=== PATIENT | female | born 1975 | race American Indian/Alaskan Native ===

== ENCOUNTER 2017-08-05 14:27 | Emergency (ER) | payer BC ==
[2017-08-05 14:27] VITALS: BMI 43.2
[2017-08-05 14:37] VITALS: RESP 18; TEMP 98
[2017-08-05 15:11] LABS: BASO # 0.1 K/uL (0.0-0.2); BASO % 0.6 % (0.0-2.0); EOS # 0.2 K/uL (0.0-0.7); EOS % 2.5 % (0.0-4.0); HEMOGLOBIN 9.5 g/dL (11.0-16.0); LYMPH % 33.9 % (20.0-40.0); MEAN CELL VOLUME 66.4 fL (81.0-99.0); MEAN CORPUSCULAR HEMOGLOBIN 21.2 pg (27.0-31.0); MEAN CORPUSCULAR HGB CONC 31.9 g/dL (33.0-37.0); MONO # 0.5 K/uL (0.0-0.8); MONO % 5.6 % (0.0-10.0); NEUT # 5.1 K/uL (1.8-7.0); NEUT % 57.4 % (50.0-75.0); NRBC % 0.1 % (0.0-2.0); RBC 4.49 Mil/uL (3.80-5.20); RED CELL DISTRIBUTION WIDTH 19.1 % (11.5-14.5); WHITE BLOOD COUNT 8.9 K/uL (4.8-10.8)
[2017-08-05 15:16] LABS: HCG,QUALITATIVE URINE NEGATIVE (NEGATIVE)
[2017-08-05 15:20] LABS: SQUAMOUS EPITHIAL 7 /hpf (0-5); URINE BILIRUBIN NEGATIVE (NEGATIVE); URINE BLOOD 1+ (NEGATIVE); URINE CLARITY Clear (Clear); URINE COLOR Yellow (YELLOW); URINE GLUCOSE (UA) NORMAL (Normal); URINE LEUKOCYTE ESTERASE TRACE Leu/uL (Negative); URINE NITRATE NEGATIVE (NEGATIVE); URINE PROTEIN 1+ mg/dL (NEGATIVE); URINE UROBILINOGEN NORMAL mg/dL (0.2-1.0)
[2017-08-05 15:23] LABS: ALB/GLOB RATIO 1.1 (1.0-2.1); ALBUMIN 3.7 g/dL (3.5-5.0); ALT/SGPT 15 U/L (9-52); AST/SGOT 14 U/L (14-36); BLOOD UREA NITROGEN 11 mg/dL (7-17); CALCIUM 8.6 mg/dl (8.6-10.4); GFR AFRICAN-AMERICAN > 60; GFR NON-AFRICAN AMERICAN > 60; LIPASE 53 U/L (23-300)
[2017-08-05 15:24] LABS: INR 1.1; PARTIAL THROMBOPLASTIN TIME 29 SECONDS (21-34); PROTHROMBIN TIME 12.9 SECONDS (9.7-12.2)
[2017-08-05 15:34] LABS: B-TYPE NATRIURETIC PEPTIDE 72.4 pg/mL (0-450)
[2017-08-05 15:36] LABS: D DIMER < 200 ng/mlDDU (0-243)
[2017-08-05] MEDS ORDERED: Iodixanol 320 MG/ML 100 ML BOTTLE IV ONE (15:55)
--- NOTE | 2017-08-05 15:59 | RAD ---
PROCEDURE: CHEST RADIOGRAPH, 1 VIEW HISTORY: SOB. RUQ/right lower chest pain COMPARISON: None available. FINDINGS: LUNGS: Mild bibasilar atelectasis. No acute consolidation. PLEURA: No pneumothorax or pleural fluid seen. CARDIOVASCULAR: Heart appears enlarged. Al. OSSEOUS STRUCTURES: No significant abnormalities. VISUALIZED UPPER ABDOMEN: Normal. OTHER FINDINGS: None. IMPRESSION: Mild bibasilar atelectasis. Cardiomegaly.
--- NOTE | 2017-08-05 17:41 | CT ---
PROCEDURE: CT Chest with contrast (Pulmonary Angiogram) HISTORY: SOB, right chest pain s/p cholecystectomy COMPARISON: None available. TECHNIQUE: Axial computed tomography images were obtained of the chest in the pulmonary arterial phase of enhancement. Coronal and sagittal reformatted images were created and reviewed. Intravenous contrast dose: 100 cc Visipaque 320 Radiation dose: Total exam DLP = 563.24 mGy-cm. This CT exam was performed using one or more of the following dose reduction techniques: Automated exposure control, adjustment of the mA and/or kV according to patient size, and/or use of iterative reconstruction technique. FINDINGS: PULMONARY ARTERIES: The visualized pulmonary trunk, right and left main, lobar, segmental and proximal subsegmental branches of the pulmonary arteries are well opacified with no definitive filling defects seen to suggest acute pulmonary embolus. . . Pulmonary trunk measures approximately 2.66 cm. AORTA: No acute findings. No thoracic aortic aneurysm. Ascending thoracic aorta measures approximately 3.3 cm and descending thoracic aorta measures approximately 2.5 cm. LUNGS: Unremarkable. No nodule, mass or pulmonary consolidation. PLEURAL SPACES: Unremarkable. No effusion or pneumothorax. HEART: Heart appears mildly enlarged. . The minor left ventricular hypertrophy. No significant pericardial effusion. LYMPH NODES: No significant mediastinal or hilar adenopathy. Central airways are midline and patent. No endobronchial lesions. There is a tiny hiatal hernia with slight wall thickening of the distal esophagus likely due to protrusion of gastric mucosa. Possibility of esophagitis not excluded. BONES, CHEST WALL: Minor multilevel degenerative spondylosis of the thoracic spine. . Prominent appearing on posterior osteophyte formation that probably results is mild localize cord compression seen at the T2-T3 and T3-T4 levels. Follow-up MRI of the thoracic spine may be prudent. No acute compression fractures no retropulsed fragments. OTHER FINDINGS: Gallbladder has been under surgically resected with metallic clips in the gallbladder fossa. IMPRESSION: No evidence of acute central pulmonary embolus. Cardiomegaly. Degenerative spondylosis most notably affecting T2-T3 and T3-T4 levels ; follow-up MRI on suggested. Above discussion for additional details, findings and recommendations.
--- NOTE | 2017-08-05 17:56 | C.PDOC ---
History Of Present Illness Pt c/o right lower chest pain after cholecystectomy last month. Time Seen by Provider: 08/05/17 14:37 Chief Complaint (Nursing): Chest Pain History Per: Patient Onset/Duration Of Symptoms: Days (1 month), Waxing/Waning Current Symptoms Are (Timing): Still Present Severity: Moderate Quality: "Pain" Associated Symptoms: Dyspnea Modifying Factors: Other Indicated Below Exacerbating Factors: Turning, Movement Additional History Per: Prior Records Past Medical History Reviewed: Historical Data, Nursing Documentation, Vital Signs Vital Signs: Last Vital Signs Temp 98 F 08/05/17 14:32 Pulse 81 08/05/17 16:40 Resp 18 08/05/17 16:40 BP 154/102 H 08/05/17 16:40 Pulse Ox 100 08/05/17 16:40 - Medical History PMH: Anemia (ETIOLOGY UNKNOWN), HTN Surgical History: Cholecystectomy Family History: States: Unknown Family Hx - Social History Hx Tobacco Use: No Hx Alcohol Use: No Hx Substance Use: No - Immunization History Hx Tetanus Toxoid Vaccination: No Hx Influenza Vaccination: No Hx Pneumococcal Vaccination: No Review Of Systems Except As Marked, All Systems Reviewed And Found Negative. Constitutional: Negative for: Fever, Weakness Respiratory: Positive for: SOB with Excertion. Negative for: Hemoptysis Gastrointestinal: Negative for: Vomiting, Diarrhea Genitourinary: Negative for: Dysuria Musculoskeletal: Negative for: Neck Pain, Back Pain, Leg Pain Skin: Negative for: Rash Neurological: Negative for: Weakness, Numbness Physical Exam - Physical Exam Appears: Non-toxic, No Acute Distress Skin: Normal Color, Warm, Dry, No Rash Head: Atraumatic, Normacephalic Eye(s): bilateral: Normal Inspection, PERRL, EOMI Neck: Normal ROM, Supple Chest: Symmetrical, No Deformity, Tenderness (right lower chest wall) Cardiovascular: Rhythm Regular Respiratory: Normal Breath Sounds, No Accessory Muscle Use Gastrointestinal/Abdominal: Soft, No Tenderness Back: No CVA Tenderness Extremity: Normal ROM, No Calf Tenderness Neurological/Psych: Oriented x3, Normal Motor, Normal Sensation ED Course And Treatment - Laboratory Results Result Diagrams: 08/05/17 15:07 08/05/17 15:07 Urine POC: Negative ECG: Interpreted By Me, Viewed By Me ECG Rhythm: Sinus Rhythm, Nonspecific Changes ECG Interpretation: No Acute Changes Rate From EC O2 Sat by Pulse Oximetry: 100 Pulse Ox Interpretation: Normal - Radiology CXR: Viewed By Me, Read By Radiologist CXR Interpretation: Yes: Cardiomegaly - CT Scan/US CTA of chest Other Rad Studies (CT/US): Read By Radiologist, Radiology Report Reviewed CT/US Interpretation: IMPRESSION: No evidence of acute central pulmonary embolus. Cardiomegaly. Degenerative spondylosis most notably affecting T2-T3 and T3-T4 levels ; follow-up MRI on suggested. Above discussion for additional details, findings and recommendations. Disposition Discussed With .: Kieran Dacosta Comment: I reviewed with him the pt's lab and CT findings. He wants pt to be discharged home and f/up in his office next week. Doctor Will See Patient In The: Office Counseled Patient/Family Regarding: Studies Performed, Diagnosis, Need For Followup, Rx Given - Disposition Referrals: iKeran Dacosta MD [Staff Provider] - Disposition: HOME/ ROUTINE Disposition Time: 17:57 Condition: STABLE Additional Instructions: Follow up with your Controller Mechanic next week for further evaluation and treatment. Return to the ER if you develop worsening of symptoms or if you have any other concerns. Prescriptions: Aspirin [Ecotrin] 81 mg PO DAILY #30 tabec Pantoprazole Sodium [Protonix] 40 mg PO DAILY #14 ect Forms: [facility] (Bots[place]an), General Discharge Instructions - Clinical Impression Clinical Impression: Cardiomegaly
[2017-08-05 18:11] VITALS: BP 160/104; PULSE 71; O2SAT 99
--- NOTE | 2017-08-08 09:14 | CARD ---
APPROVED REPORT EKG Measurement Heart [id number] <Conclusion> Normal sinus rhythm with sinus arrhythmia Borderline LVH Normal ECG
== END 2017-08-05 18:11 | disposition home or self-care (01) ==
LOC: C.ER 14:27
DX: I10 Essential (primary) hypertension (principal)
CPT/HCPCS: 71045; 71275; 80053; 81001; 83690; 83880; 84484; 84703; 85025; 85378; 85610; 85730; 96374; 99285; C9113; Q9967

== ENCOUNTER 2018-07-14 07:11 | Day surgery (SDC) | payer BC ==
[2018-07-13 11:08] VITALS: BMI 45.1
[2018-07-14] MEDS ORDERED: Midazolam 2 MG/2 ML VIAL ONE ×2 (10:04→11:23)
[2018-07-14] MEDS ORDERED: Heparin 0 ML IV ONE (10:05)
[2018-07-14] MEDS ORDERED: Iodixanol 320 MG/ML 200 ML BOTTLE IV ONE (10:05)
[2018-07-14] MEDS ORDERED: Verapamil 2 ML ONE (10:06)
[2018-07-14] MEDS ORDERED: Nitroglycerin 50mg in D5W 50 MG/250 ML BOTTLE IV ONE (10:07)
--- NOTE | 2018-07-14 21:58 | CARDCATH ---
PROCEDURE DATE: 07/14/2018 PROCEDURES: 1. Left heart catheterization. 2. Coronary angiogram. CLINICAL INDICATIONS: 1. Chest pain. 2. Hypertension. 3. Abnormal stress test. PERFORMING PHYSICIAN: Kieran Dacosta MD DESCRIPTION OF PROCEDURE: After informed consent, the patient was prepped and draped in the usual sterile fashion. 2% lidocaine was given in the left wrist for local anesthesia. Using micropuncture technique, a 6-Mexican sheath was introduced into left radial artery. JR4 diagnostic catheter engaged into right coronary artery. Contrast injected and right coronary angiogram was done. The catheter was exchanged to JL4 6-Mexican diagnostic catheter. The catheter engaged into left main coronary artery. Contrast injected and left coronary angiogram was done. The catheter was exchanged to 6-Mexican pigtail catheter. Pigtail catheter crossed into left ventricle across the aortic valve. LVEDP measured. Contrast injected and LV angiogram was done. The catheter was pulled back across the aortic valve into aorta. Gradient across the aortic valve was measured. The patient tolerated the procedure well. Postprocedure, Terumo radial band applied to left wrist with excellent hemostasis. Radiological supervision and radiological interpretation of the coronary imaging was done. FINDINGS: 1. Left main coronary artery is patent. 2. LAD and diagonal branches are patent. 3. Left circumflex and obtuse marginal branches are patent. 4. Right coronary artery is dominant and patent. 5. LV ejection fraction is approximately 70%. LVEDP is 25. No gradient across the aortic valve. IMPRESSION: 1. Normal coronaries. 2. Normal left ventricular systolic function. PLAN: Recommend medical management. Kieran Dacosta MD
== END 2018-07-14 16:30 | disposition home or self-care (01) ==
LOC: C.CATHLAB 07:11
PROVIDERS: ATTEND Internal Medicine Cardiovascular Disease
DX: R94.39 Abnormal result of other cardiovascular function study (principal); R07.9 Chest pain, unspecified; I10 Essential (primary) hypertension
CPT/HCPCS: 93458; 99152; 99153; C1769; C1887; J1644; J2001; J2250; J2405; J2930; J3010; Q9966; Q9967